=== PATIENT | male | born 1985 | race Caucasian/White ===

== ENCOUNTER 2016-08-16 14:34 | Emergency (ER) | payer BC ==
[2016-08-16 14:50] VITALS: BP 132/78
--- NOTE | 2016-08-16 15:35 | UC ---
Shoulder Pain HPI - HPI Summary HPI Summary: "slept funny" on right shoulder a few days ago, woke with nagging ache and stiffness in shoulder. Then yesterday he picked up his 30lb dog and felt a sudden sharp pain in shoulder and a "pop" sensation. Worse pain and stiffness since then. Can't use arm to do much due to pain. Hurts to move in any direction , particularly abduction and ext rotation. No prior shoulder injuries. No redness or swelling. Works as a keyboardist, has had carpal tunnel but never shoulder problems. - History of Current Complaint Chief Complaint: UCUpperExtremity Stated Complaint: R SHOULDER INJURY Time Seen by Provider: 08/16/16 15:16 Hx Obtained From: Patient, Family/Floodplain Manager - Onset/Duration: Gradual Onset, Lasting Days - 3 Timing: Constant Severity Initially: Mild Severity Currently: Moderate Character: Dull, Aching, Stiffness Aggravating Factor(s): Movement, External Rotation, Abduction Alleviating Factor(s): Rest, Ice Associated Signs And Symptoms: Negative: Swelling, Redness, Bruising, Fever, Weakness, Numbness/Tingling Related History: Dominant Hand Right - Risk Factors Non-Orthopedic Risk Factor: Negative DVT Risk Factors: Negative Septic Arthritis Risk Factor: Negative - Allergies/Home Medications Allergies/Adverse Reactions: Allergies Allergy/AdvReac Type Severity Reaction Status Date / Time No Known Allergies Allergy Verified 08/16/16 14:50 Home Medications: Home Medications Ibuprofen [Ibuprofen 200 MG] 600 mg PO PRN 08/16/16 [History] PMH/Surg Hx/FS Hx/Imm Hx Endocrine History Of: Denies: Diabetes, Thyroid Disease, Hyperthyroidism, Hypothyroidism, Dyslipidemia Cardiovascular History Of: Denies: Cardiac Disorders, Hypertension, Pacemaker/ICD, Myocardial Infarction , Congestive Heart Failure, Atrial Fibrillation, Deep Vein Thrombosis, Bleeding Disorders Respiratory History Of: Denies: COPD, Asthma, Bronchitis, Pneumonia, Pulmonary Embolism GI/ History Of: Denies: Gastroesophageal Reflux, Ulcer, Gastrointestinal Bleed, Gall Bladder Disease, Kidney Stones, Diverticulitis, Renal Disease, Urosepsis Neurological History Of: Denies: TIA, CVA, Dementia, Seizures, Migraine Psychological History Of: Denies: Anxiety, Depression, Bipolar Disorder, Schizophrenia, Post Traumatic Stress Disorder Cancer History Of: Denies: Lung Cancer, Colorectal Cancer, Breast Cancer, Prostate Cancer, Cervical Cancer Other History Of: Negative For: HIV, Hepatitis C, Anticoagulant Therapy - Surgical History Surgical History: None - Family History Known Family History: Negative: Cardiac Disease, Hypertension, Diabetes, Renal Disease - Social History Occupation: Employed Full-time - computer/keyboard Lives: With Family Alcohol Use: Rare Substance Use Type: None Smoking Status (MU): Never Smoked Tobacco Review of Systems Constitutional: Negative Skin: Negative Eyes: Negative ENT: Negative Respiratory: Negative Cardiovascular: Negative Gastrointestinal: Negative Genitourinary: Negative Motor: Negative Neurovascular: Negative Musculoskeletal: Arthralgia - right shoulder, Decreased ROM, Myalgia Neurological: Negative Psychological: Negative All Other Systems Reviewed And Are Negative: Yes Physical Exam Triage Information Reviewed: Yes Appearance: Well-Appearing, No Pain Distress, Well-Nourished Vital Signs: Initial Vital Signs Temp 98.4 F 08/16/16 14:43 Pulse 70 08/16/16 14:43 Resp 14 08/16/16 14:43 BP 132/78 08/16/16 14:43 Pulse Ox 98 08/16/16 14:43 Vital Signs Reviewed: Yes Eye Exam: Normal Neck exam: Normal Respiratory Exam: Normal Respiratory: Positive: Lungs clear, Normal breath sounds, No respiratory distress, No accessory muscle use Cardiovascular Exam: Normal Musculoskeletal Exam: Other - right shoulder with diffusely limited ROM. Hurts to abduct beyond 90 degrees. Hurts to reach behind back, hurts to move arm across chest anteriorly. No surface tenderness. No pain over AC joint or biceps tendon insertion. No scapular pain. "Pain is just inside when I move it" Neurological Exam: Normal Psychological Exam: Normal Skin Exam: Normal Diagnostics - Laboratory Diagnostic Studies Completed/Ordered: shoulder xray neg Shoulder Course/Dx - Differential Dx/Diagnosis Differential Diagnosis/HQI/PQRI: AC Separation, Arthritis, Bursitis, Sprain Provider Diagnoses: shoulder strain Discharge - Discharge Plan Condition: Stable Disposition: HOME Prescriptions: Meloxicam [Mobic] 15 mg PO DAILY PRN #20 tab PRN Reason: shoulder pain Patient Education Materials: Rotator Cuff Injury (ED) Referrals: Hernesto Pollard MD [Medical Doctor] - Additional Instructions: If not improving after a week, talk to Dr. Pollard (Orthopedic Surgery)
--- NOTE | 2016-08-16 15:54 | RAD ---
INDICATION: Right shoulder pain. TECHNIQUE: 3 views of the right shoulder were obtained. FINDINGS: The bones are in normal alignment. No fracture is seen. Joint spaces appear maintained. IMPRESSION: NO EVIDENCE OF FRACTURE.
== END 2016-08-16 16:17 | disposition home or self-care (01) ==
LOC: UCCORT 14:34
DX: S46.911A Strain of unspecified muscle, fascia and tendon at shoulder and upper arm level, right arm, initial encounter (principal); X58.XXXA Exposure to other specified factors, initial encounter; Y93.89 Activity, other specified; Y92.9 Unspecified place or not applicable
CPT/HCPCS: 99212; G0463

== ENCOUNTER 2018-07-20 17:07 | Emergency (ER) | payer BC ==
[2018-07-20 17:44] VITALS: BP 110/62
--- NOTE | 2018-07-20 19:50 | UC ---
General HPI - HPI Summary HPI Summary: pt presents to the for evaluation of his right ear/face pain. he has seen his pcp for this. he was instructed to take tylenol and motrin for this. he denies any swelling, difficulty chewing, swallowing. he has seen a dentist recently and was told that everything was fine. he is here with his . she does not notice any asymmetry to his face. he feels like his bite is normal. he denies any n/v/fever or chills. - History of Current Complaint Chief Complaint: UCEar Stated Complaint: RIGHT EAR CONCERN Time Seen by Provider: 07/20/18 19:16 Hx Obtained From: Patient, Family/Embossing Machine Operator Helper Onset Severity: Mild Pain Intensity: 3 - Allergy/Home Medications Allergies/Adverse Reactions: Allergies Allergy/AdvReac Type Severity Reaction Status Date / Time No Known Allergies Allergy Verified 07/20/18 17:42 Home Medications: Home Medications Naproxen Sodium [Aleve] 220 mg PO ONCE PRN 07/20/18 [History Confirmed 07/20/18] PMH/Surg Hx/FS Hx/Imm Hx Previously Healthy: Yes Other History Of: Negative For: HIV, Hepatitis C, Anticoagulant Therapy - Surgical History Surgical History: None - Family History Known Family History: Negative: Cardiac Disease, Hypertension, Diabetes, Renal Disease - Social History Alcohol Use: Rare Substance Use Type: None Smoking Status (MU): Never Smoked Tobacco Review of Systems All Other Systems Reviewed And Are Negative: Yes Constitutional: Positive: Negative Skin: Positive: Negative Eyes: Positive: Negative ENT: Positive: Other - face pain on the right Respiratory: Positive: Negative Cardiovascular: Positive: Negative Gastrointestinal: Positive: Negative Genitourinary: Positive: Negative Motor: Positive: Negative Neurovascular: Positive: Negative Musculoskeletal: Positive: Negative Neurological: Positive: Headache - intermittently Psychological: Positive: Negative Is Patient Immunocompromised?: No Physical Exam Triage Information Reviewed: Yes Appearance: Well-Appearing, No Pain Distress, Well-Nourished Vital Signs: Initial Vital Signs Temp 97.5 F 07/20/18 17:40 Pulse 58 07/20/18 17:40 Resp 14 07/20/18 17:40 BP 110/62 07/20/18 17:40 Pulse Ox 99 07/20/18 17:40 Vital Signs Reviewed: Yes Eye Exam: Normal ENT Exam: Normal ENT: Positive: Other - minimal tenderness anterior to right ear. no swelling, no redness, no induration. Dental Exam: Normal Neck exam: Normal Respiratory Exam: Normal Cardiovascular Exam: Normal Abdomen Description: Positive: Nontender, Soft Bowel Sounds: Positive: Present Musculoskeletal Exam: Normal Neurological Exam: Normal Psychological Exam: Normal Skin Exam: Normal Course/Dx - Course Course Of Treatment: pt presented today with complaints of right jaw/ear pain for the past week. he states that he saw his doctor and was given ibuprofen. he denies any fever, chills, or difficulty chewing. he was recently seen by a dentist and no cavities. on exam, no acute findings. I encouraged him to f/u with pcp. if worse, he should go to the closest ed for further evaluation and possible CT of the face. pt and voiced understanding. - Diagnoses Provider Diagnosis: Right-sided face pain Discharge - Sign-Out/Discharge Documenting (check all that apply): Patient Departure All imaging exams completed and their final reports reviewed: No Studies - Discharge Plan Condition: Stable Disposition: HOME Prescriptions: Ibuprofen TAB* [Motrin TAB* 600 MG] 600 mg PO Q6H PRN #30 tab PRN Reason: Pain Patient Education Materials: Atypical Facial Pain (ED) Referrals: Koko BENNETT,Patrice Barrera [Primary Care Provider] - Additional Instructions: follow up with your primary care physician. return if worse or any new symptoms. I have sent a prescription for motrin 600mg to take every 6 hours. you may also take 650mg of tylenol for pain. - Billing Disposition and Condition Condition: STABLE Disposition: Home
== END 2018-07-20 19:54 | disposition home or self-care (01) ==
LOC: UCCORT 17:07
DX: R51 Headache (principal)
CPT/HCPCS: 99212; G0463